=== PATIENT | female | born 1925 | race Caucasian/White ===

== ENCOUNTER 2016-05-08 11:48 | Emergency (ER) | payer MEDICARE, BC ==
--- NOTE | ~2016-05-08 | CT71 ---
[facility] A Service of [facility] RADIOLOGY TEXT RESULTS PATIENT: MARCUS WADSWORTH LOCATION: DEXTER : [birth year] UNIT #: [id number] AGE: [address]: Blayne Echavarria MD SEX: F ORDER DR: [id number] [facility] [address] [place], [place] [address] [id number] E MR#: [id number] Acc #: [id number] NAME: MARCUS WADSWORTH : 1925 SEX: F STUDY DATE/TIME: 05/08/2016 14:59 UNIT: DEXTER ROOM: STUDY DESCRIPTION: CT Head Wo Contrast Attending Physician: Curt Palafox M.D. Ordering Physician: Blayne Echavarria M.D. Primary Care Physician: Ariadne Rueda M.D. MEDICAL IMAGING REPORT This report is preliminary unless electronic signature is present EXAM CT brain without contrast media. DATE OF EXAM 05/08/2016 COMPARISON STUDY MRI of February 19, 2016. HISTORY Worsening confusion today. TECHNIQUE Transaxial imaging of the brain was performed without contrast media. NOTE: This CT exam was performed with one or more of the following radiation dose reduction techniques: automatic exposure control, adjustment of mA and/or kV according to patient size, and iterative reconstruction. FINDINGS Redemonstrated is generalized ventricular enlargement with decreased attenuation throughout the periventricular white matter. This appears unchanged when compared with the previous MR. No mass lesions, mass effect, evidence of acute hemorrhage or edema. No intra or extraaxial fluid collections are present. There is atherosclerotic calcifications within the carotid siphons. Mild. There is a small mucous retention cyst in the left maxillary sinus. CONCLUSION Generalized atrophy with rather extensive white matter abnormalities in both hemispheres consistent with chronic small vessel ischemia compared with the patient's previous MR of February 2016. The extent has changed. No acute intracranial findings. [facility] A Service of [facility] RADIOLOGY TEXT RESULTS PATIENT: MARCUS WADSWORTH LOCATION: DEXTER : [birth year] UNIT #: [id number] AGE: [address]: Blayne Echavarria MD SEX: F ORDER DR: Dictated by... Reji Charles M.D. THIS IS AN ELECTRONICALLY VERIFIED REPORT Reji Charles M.D. at 05/12/2016 5:08 PM Rolly TD: 05/08/2016 17:33 JOB #: [id number] MEDICAL IMAGING REPORT COPY
[~2016-05-08 11:48] MED LIST: IBUPROFEN800 MG PO; NAPROSYN250 M1 PO
[2016-05-08 12:45] LABS: BASOPHIL% 0.4 % (0-2.5); EOSINOPHIL# 0.1 X10e3 (0-0.7); EOSINOPHIL% 1.3 % (0.0-7.0); HEMATOCRIT 36.1 % (35.0-45.0); LYMPHOCYTE# 0.7 X10e3 (1.0-3.5); LYMPHOCYTE% 14.3 % (17.0-45.0); MEAN CELL VOLUME 92.8 FL (83-96); MEAN CORPUSCULAR HEMOGLOBIN 30.8 PG (28-34); MEAN CORPUSCULAR HGB CONC 33.2 g/dL (30-36); MEAN PLATELET VOLUME 7.2 FL (6.5-11.5); MONOCYTE# 0.5 X10e3 (0-1.0); MONOCYTE% 10.3 % (3.0-12.0); NEUTROPHIL# 3.5 X10e3 (1.5-7.1); NEUTROPHIL% 73.7 % (40-75); PLATELET COUNT 249 X10e3 (140-420); RED BLOOD COUNT 3.89 X10e (3.90-5.30); RED CELL DISTRIBUTION WIDTH 14.2 % (11.0-15.5); WHITE BLOOD COUNT 4.7 X10e3 (4.0-10.5)
[2016-05-08 12:46] LABS: DIFF IND NO
[2016-05-08 12:53] LABS: URINE SOURCE CLEAN CATCH
[2016-05-08 13:02] LABS: URINE APPEARANCE CLEAR; URINE BILIRUBIN NEG (NEG); URINE BLOOD NEG (NEG); URINE COLOR YELLOW; URINE GLUCOSE NEG (NEG); URINE KETONE TRACE (NEG); URINE LEUKOCYTE ESTERASE 1+ (NEG); URINE NITRATE NEG (NEG); URINE PH 6.5 (5-8); URINE PROTEIN NEG (NEG); URINE SPECIFIC GRAVITY 1.025 (1.003-1.035)
[2016-05-08 13:04] LABS: URINE BACTERIA AUWI NEG (NEGATIVE); URINE SQUAMOUS EPITHELIAL CELL NONE SEEN /[HPF]; UWBCS1 AUWI 0-2 (0-5)
[2016-05-08 13:12] LABS: AMPHETAMINE NEG (NEG); BARBITURATES POS (NEG); BENZODIAZEPINES NEG (NEG); COCAINE NEG (NEG); MARIJUANA NEG (NEG); OPIATES NEG (NEG); TRICYCLIC ANTIDEPRESSANTS NEG (NEG); U METHADONE NEG (NEG)
[2016-05-08 13:13] LABS: ACETAMINOPHEN <10 ug/mL; ALCOHOL BLOOD <5 mg/dL (0); ALKALINE PHOSPHATASE 63 U/L (32-92); ALT (SGPT) 16 U/L (10-40); AST (SGOT) 24 U/L (10-42); BILIRUBIN, DIRECT 0.1 mg/dL (0.0-0.2); BILIRUBIN,INDIRECT 0.6 mg/dL (0.0-0.9); BILIRUBIN,TOTAL 0.7 mg/dL (0.2-2.0); BLOOD UREA NITROGEN 17 mg/dL (9-23); BUN/CREATININE RATIO 18.88; CALCIUM SERUM 9.2 mg/dL (8.4-10.2); CARBON DIOXIDE 32 mmol/L (22-31); CHLORIDE 103 mmol/L (100-111); CREATININE SERUM 0.9 mg/dL (0.6-1.4); GLOM FILT RATE Estimated ABOVE60 mL/min (>60); GLUCOSE FASTING 88 mg/dL (70-110); POTASSIUM 3.6 mmol/L (3.5-5.1); PROTEIN TOTAL SERUM 6.8 g/dL (6.0-8.3); SALICYLATE <4.0 mg/dL; SODIUM 142 mmol/L (135-145)
[2016-05-08 13:14] LABS: CULTURE INDICATED? NO; URINE MUCUS PRESENT
[2016-05-08] MEDS ORDERED: MYSOLINE50 M1 PO (15:14)
[2016-05-08] MEDS ORDERED: DONEPEZIL HCL10 MG PO (15:15)
[2016-05-08] MEDS ORDERED: ESCITALOPRAM OX10 MG PO (15:15)
[2016-05-08] MEDS ORDERED: SIMVASTATIN20 MG PO (15:16)
[2016-05-08] MEDS ORDERED: COZAAR25 MG PO (15:16)
== END 2016-05-09 12:14 | disposition other institution (70) ==
LOC: CED 11:48
PROVIDERS: Emergency Medicine
DX: G30.8 Other Alzheimer's disease (principal); F02.80 Dementia in other diseases classified elsewhere, unspecified severity, without behavioral disturbance, psychotic disturbance, mood disturbance, and anxiety; F41.9 Anxiety disorder, unspecified; Z90.710 Acquired absence of both cervix and uterus; Z79.899 Other long term (current) drug therapy; Z88.2 Allergy status to sulfonamides
CPT/HCPCS: 36415; 70450; 80048; 80076; 80307; 81003; 82140; 82947; 85025; 99285; G0480

== ENCOUNTER 2016-08-08 14:02 | Emergency (ER) | payer MEDICARE, BC ==
--- NOTE | ~2016-08-08 | CT71 ---
[facility] A Service of [facility] RADIOLOGY TEXT RESULTS PATIENT: MARCUS WADSWORTH LOCATION: SED : [birth year] UNIT #: [id number] AGE: [address]: Audi Keller MD SEX: F ORDER DR: [id number] [place] [id number] E MR#: [id number] Acc #: [id number] NAME: MARCUS WADSWORTH : 1925 SEX: F STUDY DATE/TIME: 08/08/2016 14:57 UNIT: SED ROOM: STUDY DESCRIPTION: CT Head Wo Contrast Attending Physician: Audi Keller M.D. Referring Physician: Audi Keller M.D. Ordering Physician: Audi Keller M.D. Primary Care Physician: Ariadne Rueda M.D. MEDICAL IMAGING REPORT This report is preliminary unless electronic signature is present. EXAM Head CT without contrast. HISTORY Head injury earlier today after slipping and falling. TECHNIQUE Axial images were obtained without contrast and compared with 05/08/16. This CT exam was performed with one or more of the following radiation dose reduction techniques: automatic exposure control, adjustment of mA and/or kV according to patient size, and iterative reconstruction. FINDINGS Generalized atrophy is seen. There is no evidence of mass, hemorrhage or edema. Chronic ischemic changes are seen around ventricles. Extraaxial structures are unremarkable. No changes are noted since the previous exam. IMPRESSION Atrophy with chronic ischemic changes. No acute findings. Dictated by... Chilango Hernandez M.D. THIS IS AN ELECTRONICALLY VERIFIED REPORT Chilango Hernandez M.D. at 08/12/2016 7:35 AM ARA/mart TD: 08/08/2016 18:28 JOB #: [id number] MEDICAL IMAGING REPORT [facility] A Service of [facility] RADIOLOGY TEXT RESULTS PATIENT: MARCUS WADSWORTH LOCATION: SED : [birth year] UNIT #: [id number] AGE: [address]: Audi Keller MD SEX: F ORDER DR: Page 1 of 1
--- NOTE | ~2016-08-08 | CT52 ---
[facility] A Service [facility] RADIOLOGY TEXT RESULTS PATIENT: MARCUS WADSWORTH LOCATION: SED : [birth year] UNIT #: [id number] AGE: [address]: Audi Keller MD SEX: F ORDER DR: [id number] [place] [id number] E MR#: [id number] Acc #: [id number] NAME: MARCUS WADSWORTH : 1925 SEX: F STUDY DATE/TIME: 08/08/2016 15:06 UNIT: SED ROOM: STUDY DESCRIPTION: CT Cervical Spine Wo Cont Attending Physician: Audi Keller M.D. Referring Physician: Audi Keller M.D. Ordering Physician: Audi Keller M.D. Primary Care Physician: Ariadne Rueda M.D. MEDICAL IMAGING REPORT This report is preliminary unless electronic signature is present. EXAM Cervical spine CT HISTORY Neck pain after slipping and falling earlier today. TECHNIQUE Thin section imaging was obtained from the skull base to the upper thoracic spine and evaluated at bone and soft tissue windows with multiplanar reformats. This CT exam was performed with one or more of the following radiation dose reduction techniques: automatic exposure control, adjustment of mA and/or kV according to patient size, and iterative reconstruction. FINDINGS Degenerative changes are seen at all cervical discs with disc space narrowing and both anterior and posterior osteophyte formation seen throughout the cervical spine. Posterior facet degenerative changes are seen in the mid cervical levels, generally worse on the left than on the right and most prominent at C2-3, C3-4 and C4-5. There is moderate canal narrowing at C4-5 and C5-6 from degenerative disc and facet disease. No fractures or destructive bone lesions are seen. No interlocked facets are seen. Adjacent soft tissues are unremarkable. IMPRESSION Advanced multilevel cervical degenerative disc and facet disease, as described above. Otherwise negative. No fracture seen. Dictated by... Chilango Hernandez M.D. [facility] A Service of [facility] RADIOLOGY TEXT RESULTS PATIENT: MARCUS WADSWORTH LOCATION: SED : [birth year] UNIT #: [id number] AGE: [address]: Audi Keller MD SEX: F ORDER DR: THIS IS AN ELECTRONICALLY VERIFIED REPORT Chilango Hernandez M.D. at 08/12/2016 7:35 AM Pete TD: 08/08/2016 18:46 JOB #: [id number] MEDICAL IMAGING REPORT Page 1 of 1
[~2016-08-08 14:02] MED LIST changes: +COZAAR25 MG PO; +DONEPEZIL HCL10 MG PO; +ESCITALOPRAM OX10 MG PO; +MYSOLINE50 M1 PO; +SIMVASTATIN20 MG PO
== END 2016-08-08 16:00 | disposition home or self-care (01) ==
LOC: SED 14:02
DX: S09.90XA Unspecified injury of head, initial encounter (principal); S13.4XXA Sprain of ligaments of cervical spine, initial encounter; F41.9 Anxiety disorder, unspecified; F03.90 Unspecified dementia, unspecified severity, without behavioral disturbance, psychotic disturbance, mood disturbance, and anxiety; Z88.2 Allergy status to sulfonamides; Z88.1 Allergy status to other antibiotic agents; Z79.899 Other long term (current) drug therapy; Y08.89XA Assault by other specified means, initial encounter; W01.0XXA Fall on same level from slipping, tripping and stumbling without subsequent striking against object, initial encounter; Y92.129 Unspecified place in nursing home as the place of occurrence of the external cause
CPT/HCPCS: 70450; 72125; 99284